=== PATIENT | female | born 1980 | race Caucasian/White ===

== ENCOUNTER 2019-06-04 11:28 | Day surgery (SDC) | payer MEDICARE, OTHER ==
[~2019-06-04] VITALS: Ht 152.4 cm; Wt 59.1 kg
[~2019-06-04 11:28] MED LIST: ALBU8.5H8 IH; BACL10TA PO; CETI10TA59 PO; NITR50CA50 PO; SODIUM CHLORIDE 0.9% 1,000 ML ONE
[2019-06-04] MEDS ORDERED: LIDOCAINE/PF 2% 5 ML VIAL IM ONE (11:29)
[2019-06-04] MEDS ORDERED: PROPOFOL 1% 20 ML VIAL IVP ONE (11:29)
[2019-06-04] MEDS ORDERED: SODIUM CHLORIDE 0.9% 1,000 ML IV ONE (12:00)
== END 2019-06-04 14:30 | disposition home or self-care (01) ==
LOC: SURGERY 11:28
PROVIDERS: ATTEND Student in an Organized Health Care Education/Training Program
DX: R19.7 Diarrhea, unspecified (principal); Z83.3 Family history of diabetes mellitus; R97.8 Other abnormal tumor markers
CPT/HCPCS: 36415; 45380; 84702; 88305; C1769; J2704; J3490; J7030